=== PATIENT | male | born 1950 | race Caucasian/White ===

== ENCOUNTER 2025-03-14 21:40 | Emergency (ER) | payer MEDICAID, OTHER ==
[~2025-03-14] VITALS: Ht 172.7 cm; Wt 99.8 kg
[2025-03-14 22:55] LABS: PLATELET COUNT (AUTO) 254 K/uL (152-348); RED BLOOD CELL COUNT(AUTO) 3.55 MIL/uL (4.06-5.63); RED CELL DISTRIBUTION WIDTH 15.2 % (12.1-16.2); WHITE BLOOD COUNT (AUTO) 6.3 K/uL (3.6-10.2)
[2025-03-14 22:59] LABS: *BILIRUBIN,URIN NEGATIVE (NEGATIVE); *BLOOD, URINE NEGATIVE (NEGATIVE); *CLARITY,URINE CLEAR (CLEAR); *COLOR,URINE YELLOW (YELLOW); *KETONES,URINE NEGATIVE (NEGATIVE); *PROTEIN,URINE 1+ (NEGATIVE); *UROBILINOGEN,URINE 0.2 E.U./dl (NORMAL); LEUKOCYTE ESTERASE ,URINE 1+ (NEGATIVE); NITRITE, URINE NEGATIVE (NEGATIVE); UGLUCOSE NEGATIVE (NEGATIVE)
[2025-03-14 23:01] LABS: CREATININE 0.8 mg/dL (0.6-1.3); SODIUM SERUM 140 mmol/L (136-145); UREA NITROGEN, BLOOD 14 mg/dL (7-18)
[2025-03-14 23:06] LABS: ETHANOL < 3 MG/DL (0-10)
[2025-03-14 23:07] LABS: ASPARTATE AMINOTRANSFERASE 45 U/L (15-37); TOTAL PROTEIN, SERUM 7.4 g/dL (6.4-8.2)
[2025-03-14 23:07] LABS: *AMPHETAMINE, URINE NEGATIVE (NEGATIVE); *BARBITURATE, URINE NEGATIVE (NEGATIVE); *BENZODIAZEPINE, URINE POSITIVE (NEGATIVE); *CANNABINOID, URINE NEGATIVE (NEGATIVE); *COCCAINE, URINE NEGATIVE (NEGATIVE); *OPIATE, URINE NEGATIVE (NEGATIVE); *PHENCYCLIDINE SCREEN,URINE NEGATIVE (NEGATIVE); FENTANYL, URINE NEGATIVE (NEGATIVE); SQUAMOUS EPITHELIAL CELL,UR NONE SEEN /HPF (NONE SEEN)
[2025-03-14] MEDS ORDERED: HALOPERIDOL LACTATE 5 MG/1 ML VIAL ONE (23:43)
[2025-03-14] MEDS ORDERED: diphenhydrAMINE 50 MG/1 ML VIAL ONE (23:43)
[2025-03-14] MEDS ORDERED: LORAZEPAM 2 MG/1 ML VIAL ONE (23:44)
[2025-03-14] MEDS: diphenhydrAMINE 50 MG/1 ML VIAL IM ONE (23:55)
[2025-03-14] MEDS: LORAZEPAM 2 MG/1 ML VIAL IV ONE (23:55)
[2025-03-14] MEDS: HALOPERIDOL LACTATE 5 MG/1 ML VIAL IM ONE (23:55)
[2025-03-15] MEDS ORDERED: THIA100T74 PO (00:20)
[2025-03-15] MEDS ORDERED: MULT-213 PO (00:20)
[2025-03-15] MEDS ORDERED: NYST15CR TP (00:20)
[2025-03-15] MEDS ORDERED: MAGN500C16 PO (00:20)
[2025-03-15] MEDS ORDERED: SENN1TAB59 PO (00:20)
[2025-03-15] MEDS ORDERED: POLY250017 PO (00:20)
[2025-03-15] MEDS ORDERED: AMLO10TA59 PO (00:20)
[2025-03-15] MEDS ORDERED: NA P133E RC (00:20)
[2025-03-15] MEDS ORDERED: MAGN400O6 PO (00:20)
[2025-03-15] MEDS ORDERED: BISA10SU61 RC (00:20)
[2025-03-15] MEDS ORDERED: POLY15DR31 OP (00:20)
[2025-03-15] MEDS ORDERED: CYAN-51 PO (00:20)
[2025-03-15] MEDS ORDERED: FOLI1TAB27 PO (00:20)
[2025-03-15] MEDS ORDERED: QUET25TA PO (00:20)
[2025-03-15] MEDS ORDERED: AMMO385C4 TP (00:20)
[2025-03-15] MEDS ORDERED: ACET-3117 PO (00:20)
[2025-03-15] MEDS: SULFAMETH/TRIMETH 800/160 MG TABLET PO ONE (02:31)
[2025-03-15] MEDS ORDERED: SULFAMETH/TRIMETH 800/160 MG TABLET ONE (02:31)
[2025-03-15] MEDS ORDERED: ZIPRASIDONE MESYLATE 20 MG VIAL IM ONE (09:56)
[2025-03-15] MEDS: ZIPRASIDONE MESYLATE 20 MG VIAL IM ONE (10:00)
[2025-03-15 15:21] VITALS: O2SAT 96
== END 2025-03-15 18:29 | disposition short-term general hospital (02) ==
LOC: ER 22:22
DX: F29 Unspecified psychosis not due to a substance or known physiological condition (principal); N39.0 Urinary tract infection, site not specified; I10 Essential (primary) hypertension; Z79.899 Other long term (current) drug therapy
CPT/HCPCS: 80053; 81001; 82140; 85025; 87086; 36415; 99285; 96374; 96372 ×2; 80299; 80320; 80307; J1200; J1630; J2060; J3486; A4606; A4663; G0480